=== PATIENT | female | born 1975 | race Native Hawaiian/Other Pacific Islander ===

== ENCOUNTER 2021-08-12 13:29 | Emergency (ER) | payer OTHER ==
[~2021-08-12] VITALS: Ht 157.5 cm; Wt 108.0 kg
[2021-08-12 13:31] VITALS: BP 161/67; TEMP 97.6
[2021-08-12 13:39] LABS: PLATELET COUNT 365 K/uL (152-353)
[2021-08-12 13:52] LABS: POTASSIUM 4.3 mmol/L (3.6-5.2)
[2021-08-12] MEDS ORDERED: ASPIR-8181 MG PO (19:41)
[2021-08-12] MEDS ORDERED: BENZ1TAB43 PO (19:42)
[2021-08-12] MEDS ORDERED: CLON0.5T36 PO (19:43)
[2021-08-12] MEDS ORDERED: CLOZAPINE200 MG PO (19:45)
[2021-08-12] MEDS ORDERED: ACID CONTROL MA20 MG PO (19:46)
[2021-08-12] MEDS ORDERED: FEOSOL45 MG PO (19:47)
[2021-08-12] MEDS ORDERED: KP FOLIC ACID1 MG PO (19:48)
[2021-08-12] MEDS ORDERED: GLIM2TAB PO (19:49)
[2021-08-12] MEDS ORDERED: HALO10TA5 PO (19:50)
[2021-08-12] MEDS ORDERED: HALO5TAB10 PO (19:51)
[2021-08-12] MEDS ORDERED: LEVO0.1519 PO (19:53)
[2021-08-12] MEDS ORDERED: HM MAGNESIUM400 MG PO (19:55)
[2021-08-12] MEDS ORDERED: MEDR10TA4 PO (19:58)
[2021-08-12] MEDS ORDERED: GNP MELATONIN3 MG PO (19:59)
[2021-08-12] MEDS ORDERED: METFORMIN HYD1000 MG PO (20:00)
[2021-08-12] MEDS ORDERED: METO-837 PO (20:01)
[2021-08-12] MEDS ORDERED: OXYB5TAB56 PO (20:02)
[2021-08-12] MEDS ORDERED: SENNA PLUS 50-81 CAP PO ×2 (20:03→20:04)
[2021-08-12] MEDS ORDERED: SERTRALINE HYDR50 MG PO (20:06)
[2021-08-12] MEDS ORDERED: SIMV10TA PO (20:06)
[2021-08-12] MEDS ORDERED: SPIRONOLACT25 MG PO (20:08)
[2021-08-12] MEDS ORDERED: TRAZODONE HYDR150 MG PO (20:09)
[2021-08-12] MEDS ORDERED: D 50005000 UNIT PO (20:10)
[2021-08-12] MEDS ORDERED: DOK100 MG PO (20:11)
[2021-08-12] MEDS ORDERED: HYDR25CA25 PO (20:12)
[2021-08-12] MEDS ORDERED: TYLENOL325 MG PO (20:13)
== END 2021-08-12 14:54 | disposition still patient (30) ==
LOC: ED 13:29
PROVIDERS: Hospitalist
DX: F25.8 Other schizoaffective disorders (principal); F22 Delusional disorders; R44.2 Other hallucinations; Z11.52 Encounter for screening for COVID-19; Z04.6 Encounter for general psychiatric examination, requested by authority
CPT/HCPCS: 80053; 85027; 87635; 93005; 99283; J0696; U0003